=== PATIENT | female | born 1995 | race African-American/Black ===

== ENCOUNTER 2017-10-01 17:01 | Observation (INO) | payer SELFPAY ==
[~2017-10-01 17:01] MED LIST: ISOVUE-370 76%-LOCM 1 ML ONE; Ketorolac Tromethamine 30 MG/ML VIAL ONE; Lidocaine 1% PF 5 ML VIAL ONE; Ondansetron HCl/PF 4 MG/2 ML Vial ONE; PROPOFOL 200 MG/20 ML VIAL ONE
[2017-10-01] MEDS ORDERED: CEFAZOLIN 1 GM VIAL ONE (17:06)
[2017-10-01] MEDS ORDERED: Adacel (T-DAP) 0.5 ML VIAL ONE (17:07)
[2017-10-01] MEDS ORDERED: CEFAZOLIN/Water 2 GM/20 ML SYRINGE ONE (17:07)
[2017-10-01] MEDS ORDERED: Fentanyl 100 MCG/2 ML VIAL ONE ×5 (17:34→19:51)
[2017-10-01 17:56] LABS: #Eosinphils 0.1 thou/uL (0.0-0.7); #Lymphocytes 1.3 thou/uL (1.20-3.40); #Monocytes 0.8 thou/uL (0.11-0.59); #Neutrophils 4.9 thou/uL (1.40-6.50); %Basophils 0.6 % (0.0-1.0); %Eosinophils 0.8 % (0.0-10.0); %Lymphocytes 17.9 % (21.0-51.0); %Monocytes 10.8 % (0.0-10.0); %Neutrophils 69.9 % (42.0-75.0); Hemoglobin 12.3 g/dL (12.0-16.0); Mean Corpuscular HGB CONC 33.3 g/dL (32.0-36.0); Mean Corpuscular Hemoglobin 30.7 pg (27.0-31.0); Mean Corpuscular Volume 92.4 fl (81.0-99.0); Mean Platelet Volume 8.6 fL (7.4-10.4); Platelet Count 180 thou/uL (130-400); RBC Distribution Width 12.9 % (11.5-14.5); Red Blood Cell (RBC) Count 3.99 mill/uL (4.20-5.40)
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
[2017-10-01 18:11] LABS: BHCG - Serum Negative (NEGATIVE); Pregs Control Background? CLEAR/WHITE (CLR/WHITE); Pregs Control Bar Appear? YES (CONTROL BAR)
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
[2017-10-01 18:21] LABS: ALT (SGPT) 7 U/L (8-55); AST (SGOT) 16 U/L (5-34); Albumin 3.8 g/dL (3.5-5.0); Alkaline Phosphatase 46 U/L (40-150); Anion Gap 13 mmol/L (10-20); BUN (Urea Nitrogen) 14 mg/dL (7.0-18.7); Bilirubin, Total 0.9 mg/dL (0.2-1.2); Calc. Creatinine Clearance 0 mL/min (70-130); Carbon Dioxide 20 mmol/L (22-29); Chloride 105 mmol/L (98-107); Estimated GFR-MDRD 81; Glucose 94 mg/dL (70-105); Potassium 3.9 mmol/L (3.5-5.1); Protein, Total 6.8 g/dL (6.0-8.3); Sodium 134 mmol/L (136-145)
[2017-10-01] MEDS ORDERED: Midazolam HCl 2 mg/2 ml Vial ONE (19:26)
[2017-10-01] MEDS ORDERED: HYDROmorphone 0.5 MG/0.5 ML SYRINGE ONE (19:49)
[2017-10-01] MEDS ORDERED: Bacitracin Zinc Ointment 30 gm TUBE ONE (21:32)
[2017-10-01] MEDS ORDERED: Ondansetron HCl/PF 4 MG/2 ML Vial IVP PRN (22:10)
[2017-10-01] MEDS ORDERED: HYDROmorphone 2 MG/ML VIAL SLOW IVP PRN (22:10)
[2017-10-01] MEDS ORDERED: Promethazine HCl 25 MG/ML VIAL SLOW IVP PRN (22:10)
[2017-10-01] MEDS ORDERED: Promethazine HCl 25 MG/ML VIAL IM PRN (22:10)
[2017-10-01] MEDS ORDERED: Meperidine HCl/PF 25 MG/ML VIAL ONE (22:52)
[2017-10-01] MEDS ORDERED: traMADol HCl 50 MG TAB PO PRN (23:35)
[2017-10-01] MEDS ORDERED: Dextrose 5% in Water 1,000 ML IV PRN (23:35)
[2017-10-01] MEDS ORDERED: Acetaminophen 500 MG TAB PO PRN (23:35)
[2017-10-01] MEDS ORDERED: Dextrose 50% Abboject 50 ML SYRINGE SLOW IVP PRN ×2 (23:35)
[2017-10-01] MEDS ORDERED: Sodium Chloride 0.9% 1,000 ML IV SCH (23:35)
[2017-10-01 23:45] VITALS: BMI 20.3
[2017-10-01] MEDS ORDERED: Famotidine/PF 20 mg/2ml Vial SLOW IVP SCH (23:45)
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
[2017-10-02] MEDS: traMADol HCl 50 MG TAB PO SCH ×3 (00:31→11:34)
[2017-10-02] MEDS: Ibuprofen 600 MG TAB PO SCH ×3 (00:32→15:41)
[2017-10-02] MEDS: CEFAZOLIN/Water 2 G/20 ML 2 GM in Pre-Filled Syringe 1 EACH SLOW IVP SCH ×2 (01:44→09:46)
[2017-10-02] MEDS ORDERED: CEFAZOLIN/Water 2 G/20 ML 2 GM in Pre-Filled Syringe 1 EACH SLOW IVP SCH (02:00)
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
[2017-10-02] MEDS: Famotidine/PF 20 mg/2ml Vial SLOW IVP SCH ×2 (09:36→09:46)
[2017-10-02 12:17] VITALS: BP 110/67; TEMP 97.8
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
--- NOTE | 2017-10-13 11:49 | PQF ---
[facility] POST DISCHARGE CLINICAL DOCUMENTATION IMPROVEMENT CLARIFICATION FORM Todays Date: 10/13/17 Patients Name LIAM JARA Admit Date 10/01/17 Disch Date 10/02/17 Clinical Statistics Manager Name Jarrell Sharpe Email: [email or web address] Cell: [phone] Present Clinical Indicators - Signs / Symptoms Results and Location in Medical Record [ ] Documentation of: [ ] [ ] Documentation of: [ ] [ ] Documentation of: [ ] [ ] Documentation of: [ ] [ ] Risks [ ] [ ] [ ] Treatment [ ] Laceration repair of right groin wound Missing laceration repair size for right groin wound [ ] [ ] Ilir Ronquillo The documentation in this patients record requires clarification to ensure coding compliance and accuracy. Check the appropriate box and include in your discharge summary. [ ] [ ] [ ] [ ] Please check this box if this does not apply to this patient [x ] Unable to determine [ ] Other diagnosis: Review the following information and exercise your independent professional judgment in responding to the clarification. Based upon the clinical findings, risk factors, and treatment, please clarify if you are treating one of the above probable or suspected diagnoses. Physician Signature: Date Time MTDD
== END 2017-10-02 16:16 | disposition home or self-care (01) ==
LOC: ERS 17:01 → SURG B 20:09 → ERS 20:09 → SDC/OP 20:12 → SURG B 23:26
PROVIDERS: ADMIT Surgery; ATTEND Surgery
PROC: 0HQ1XZZ Repair Face Skin, External Approach (ICD-10-PCS; principal; 2017-10-01)
PROC: 0HQLXZZ Repair Left Lower Leg Skin, External Approach (ICD-10-PCS; 2017-10-01)
PROC: 0HQKXZZ Repair Right Lower Leg Skin, External Approach (ICD-10-PCS; 2017-10-01)
PROC: 0HQ7XZZ Repair Abdomen Skin, External Approach (ICD-10-PCS; 2017-10-01)
PROC: 0JQ80ZZ Repair Abdomen Subcutaneous Tissue and Fascia, Open Approach (ICD-10-PCS; 2017-10-01)
DX: S01.81XA Laceration without foreign body of other part of head, initial encounter (principal); S31.113A Laceration without foreign body of abdominal wall, right lower quadrant without penetration into peritoneal cavity, initial encounter; S81.812A Laceration without foreign body, left lower leg, initial encounter; S81.811A Laceration without foreign body, right lower leg, initial encounter; S31.119A Laceration without foreign body of abdominal wall, unspecified quadrant without penetration into peritoneal cavity, initial encounter; V86.59XA Driver of other special all-terrain or other off-road motor vehicle injured in nontraffic accident, initial encounter
CPT/HCPCS: 36415; 70450; 71260; 72125; 74177; 80053; 84703; 85025; 86850; 86900; 86901; 90471; 90715; 96361; 96365; 96374; 96375; 96376; G0378; G0390; G8978-GP-CL; G8979-GP-CJ; J0690; J1170; J1885; J2001; J2175; J2250; J2270; J2405; J2704; J3010; S0028